=== PATIENT | female | born 1955 | race Caucasian/White ===

== ENCOUNTER 2025-02-17 11:13 | Emergency (ER) | payer MEDICARE, OTHER ==
[~2025-02-17] VITALS: Ht 165.1 cm; Wt 80.3 kg
--- NOTE | 2025-02-17 11:21 | ERN ---
ED Note History of Present Illness Stated Complaint: BACK PAIN Chief Complaint: Back Injury Time Seen by MD: 11:16 Dictation: PATIENT IS A 69-YEAR-OLD FEMALE THAT COMING IN TODAY FROM THE [facility] WITH SWELLING AND ECCHYMOSIS TO HER LOW BACK MIDLINE [place] AREA ONSET WAS TWO WEEKS PRIOR TO ARRIVAL. 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 SHE SHE IS ON NO BLOOD THINNERS NO LOC NO HEAD INJURY. SHE STATES SHE STARTED NOTICED SWELLING TO HER LOW BACK THEN AND WENT TO [facility] AND WAS SEEN BY A PA WHO GAVE HER LIDODERM PATCHES. NO IMAGING OR LABS DONE. SHE STATES THE SWELLING HAS CONTINUED TO GET WORSE AND SHE CAME IN TODAY AFTER BEING SENT TO THE URGENT CARE BY THE [facility] AND THEY TOLD HER TO GO TO THE ER. 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 Past Medical History History: Not Applicable RN Note Reviewed/Agreed w/PFSH: Yes Review of System Dictation CONSTITUTIONAL: NEGATIVE EXCEPT FOR HPI HEAD/FACE: NEGATIVE EXCEPT FOR HPI EENT: NEGATIVE EXCEPT FOR HPI RESPIRATORY: NEGATIVE EXCEPT FOR HPI GASTROINTESTINAL/ABDOMINAL: NEGATIVE EXCEPT FOR HPI GENITOURINARY: NEGATIVE EXCEPT FOR HPI MUSCULOSKELETAL: NEGATIVE EXCEPT FOR HPI LOW BACK PAIN WITH SWELLING INTEGUMENTARY: NEGATIVE EXCEPT FOR HPI NEUROLOGICAL/PSYCH: NEGATIVE EXCEPT FOR HPI HEMATOLOGIC/LYMPHATIC: NEGATIVE EXCEPT FOR HPI ALL SYSTEMS NEGATIVE, EXCEPT NOTED ABOVE. 13 POINT REVIEW OF SYSTEMS ASSESSED AND ALL NEGATIVE EXCEPT FOR ABOVE. Initial Vital Sign VS Vital Signs Date Time Temp Pulse Resp B/P (MAP) Pulse Ox O2 Delivery O2 Flow Rate FiO2 02/17/25 11:16 98.6 71 18 118/56 97 02/17/25 12:39 Room Air* 0 21 Physical Exam Dictation VITAL SIGNS REVIEWED GENERAL APPEARANCE: ALERT, ORIENTED X 3, MILD ACUTE DISTRESS, WELL DEVELOPED, NOURISHED. HEAD AND FACE: NON-TRAUMATIC. EYES: PERRL, PINK CONJUNCTIVAS, EYELID NO TRAUMA, ANTERIOR CHAMBER WITH ARCUS SENILIS. EARS: PINNAS INTACT AND NO SIGNS OF TRAUMA OR ERYTHEMA EAR CANALS CLEAR AND NO DISCHARGE TM NO ERYTHEMA NOSE: NO DISCHARGE, NO BLEEDING. OROPHARYNX: MOUTH NORMAL, TONGUE PINK, PHARYNX CLEAR,NO ERYTHEMA, TONSILS NO EXUDATES, NO ABSCESSES NOTED, MUCOUS MEMBRANE MOIST NECK: SUPPLE, NON-TENDER, NO THYROMEGALY, NO MASSES, NO JVD, NO BRUITS BREAST:DEFERRED CHEST:NO TENDERNESS, NO CREPITUS, NO PARADOXICAL MOVEMENT, NO RETRACTIONS LUNGS:CLEAR, WELL-VENTILATED, SYMMETRIC, NO RALES, NO WHEEZING, NO RHONCHI, NO STRIDOR, GOOD BREATH SOUNDS BILATERALLY HEART: REGULAR RATE, REGULAR RHYTHM, NO MURMUR, NO GALLOPS VASCULAR: NO PERIPHERAL EDEMA, ABDOMEN: SOFT, POSITIVE BOWEL SOUNDS, NONDISTENDED, NO GUARDING, NONTENDER, NO REBOUND, NO MASSES NO HEPATOMEGALY, NO SPLENOMEGALY, NO CORONEL'S SIGN, NO HERNIAS. RECTAL: DEFERRED GENITAL: DEFERRED NEUROLOGICAL: NORMAL SPEECH, MOTOR FUNCTION INTACT, SENSORY FUNCTION INTACT MUSCULOSKELETAL: NECK NONTENDER, FULL RANGE OF MOTION, DIFFUSE LUMBAR TENDERNESS WITH A ECCHYMOSIS NOTED. THERE WAS A SIGNIFICANT AREA OF SWELLING THAT IS SOFT NO FLUCTUANCE NONTENDER TO THE MIDLINE LUMBAR AREA. EXTREMITIES: NONTENDER, FULL RANGE OF MOTION SKIN: COLOR PINK, DRY, NO TURGOR, NO RASH, NO LACERATIONS, NO ABRASIONS, NO CONT USIONS. LYMPHATIC: DEFERRED Results (Laboratory/Radiology) Laboratory/Radiology Laboratory Tests Test 02/17/25 11:48 White Blood Count 5.6 K/uL (4.8-10.8) Red Blood Count 4.09 MIL/uL (4.00-5.50) Hemoglobin 12.2 g/dL (12.0-16.0) Hematocrit 37.7 % (36-48) Mean Corpuscular Volume 92.2 fL (79-99) Mean Corpuscular Hemoglobin 29.8 pg (27.0-33.0) Mean Corpuscular Hemoglobin Concent 32.4 g/dL (32.0-36.0) Red Cell Distribution Width 13.5 % (11.0-15.5) Platelet Count 294 K/uL (130-400) Mean Platelet Volume 10.2 fL (7.5-10.5) Immature Granulocyte % (Auto) 0.4 % (0-1) Neutrophils (%) (Auto) 56.0 % (40.0-77.0) Lymphocytes (%) (Auto) 30.3 % (21.0-51.0) Monocytes (%) (Auto) 10.8 % (3.0-13.0) Eosinophils (%) (Auto) 1.4 % (0.0-8.0) Basophils (%) (Auto) 1.1 % (0.0-5.0) Neutrophils # (Auto) 3.2 K/uL (1.8-7.7) Lymphocytes # (Auto) 1.7 K/uL (1.0-4.8) Monocytes # (Auto) 0.6 K/uL (0.1-1.0) Eosinophils # (Auto) 0.08 K/uL (0.00-0.70) Basophils # (Auto) 0.06 K/uL (0.00-0.20) Absolute Immature Granulocyte (auto 0.02 K/uL (0-1) Nucleated Red Blood Cells 0.0 % (0.0-0.19) Sodium Level 136 mmol/L (136-145) Potassium Level 4.2 mmol/L (3.5-5.1) Chloride Level 99 mmol/L (101-111) L Carbon Dioxide Level 30 mmol/L (21-32) Blood Urea Nitrogen 19 mg/dL (7-18) H Creatinine 0.6 mg/dL (0.5-1.0) Glomerular Filtration Rate Calc 97 mL/min (>90) Random Glucose 90 mg/dL (70-105) Total Calcium 8.8 mg/dL (8.5-10.1) 1205/LUMBAR FILM DEMONSTRATES DEGENERATIVE CHANGES ONLY ULTRASOUND DEMONSTRATES 8.4 X 2.5 X 4.5 HEMATOMA. Labs Reviewed?: Yes ED Course ED Course Orders Procedure Category Date Status Time Lumbar Spine 2-3vws RAD 02/17/25 Resulted 11:17 Us Soft Tissue Lower US 02/17/25 Resulted Back 11:17 Cbc With Differential LAB 02/17/25 Complete 11:17 Basic Metabolic Panel LAB 02/17/25 Complete 11:17 Vital Signs Date Time Temp Pulse Resp B/P (MAP) Pulse Ox O2 Delivery O2 Flow Rate FiO2 02/17/25 12:39 98.4 70 14 115/57 97 Room Air* 0 21 02/17/25 11:16 98.6 71 18 118/56 97 Medical Decision Making [facility] 1245/MEDICAL DECISION-MAKING BASED ON BASIC LABS, ULTRASOUND OF SWOLLEN AREA TO BACK AND X-RAY LABS UNREMARKABLE ULTRASOUND DEMONSTRATES SUBCUTANEOUS HEMATOMA LUMBAR X-RAY NEGATIVE FOR FRACTURE HEMATOMA WAS ASPIRATED AFTER CONSENT BY PATIENT HEMATOMAS NOW MARKEDLY REDUCED AND DECOMPRESSED PATIENT GIVEN WOUND CARE INSTRUCTIONS Procedure Procedure Dictation: 1235/PROCEDURE EXPLAINED TO PATIENT SHE AGREED TO PROCEED HEMATOMA TO LUMBAR BACK WAS PREPPED ASEPTICALLY WITH BETADINE SWABS 18 GAUGE NEEDLE TO A 50 ML SYRINGE WAS USED TO ASPIRATE HEMATOMA ASPIRATED APPROXIMATELY 40 ML OF SEROSANGUINEOUS DRAINAGE HEMATOMAS MARKEDLY REDUCED NO BLEEDING AFTER PROCEDURE AND PATIENT TOLERATED WELL WOUND CARE INSTRUCTIONS GIVEN TO PATIENT TO INCLUDE NO HOT TUBS NO SWIMMING UNTIL CLEARED BY HER DOCTOR DX & DISP Disposition: Discharge Departure Impression: Primary Impression: Traumatic hematoma of lower back Additional Impressions: Fall, Dehydration, Traumatic ecchymosis of lower back Condition: Stable Additional Instructions: FOLLOW-UP WITH PRIMARY CARE PROVIDER IN 1 TO 2 DAYS. TAKE MEDICATIONS DIRECTED HERE IN THE EMERGENCY ROOM. OKAY TO CONTINUE HOME MEDICATIONS UNLESS OTHERWISE DISCUSSED DURING YOUR VISIT IN THE EMERGENCY ROOM TODAY. RETURN TO YOUR NEAREST EMERGENCY ROOM IF SYMPTOMS WORSEN OR IF THERE IS NO IMPROVEMENT. CALL 911 IF YOU NEED IMMEDIATE ASSISTANCE. TAKE TYLENOL OR MOTRIN [id number] NEEDED AND IF NO CONTRAINDICATIONS ARE PRESENT. INCREASE ORAL HYDRATION. A WOUND CULTURE OR URINE CULTURE WAS ORDERED HERE IN THE EMERGENCY ROOM DEPARTMENT PLEASE FOLLOW-UP WITH PRIMARY CARE PROVIDER AND ADVISE THEM TO GET REPEAT PORTS FROM OUR FACILITY. IF YOU HAD ANY JUANA WRAP/SPLINTS THAT WERE APPLIED HERE, PLEASE DO NOT REMOVE THEM UNTIL YOU SEE YOUR PRIMARY CARE OR SPECIALTY. TRIPLE ANTIBIOTIC OINTMENT 3 TIMES A DAY FOR FIVE DAYS WITH BAND-AID TO PUNCTURE WOUND ON BACK. OKAY TO TAKE A SHOWER WASH WITH SOAP AND WATER AND REPLACE BAND-AID AFTER BATH. NO HOT TUBS, NO SWIMMING NO LYING IN BATH TUBS UNTIL CLEARED BY YOUR DOCTOR. Referrals: NONE (PCP) Time of Disposition: 12:47 I have reviewed the case, and I agree with, Diagnosis and Plan ADELE BOSS Feb 17, 2025 11:21
[2025-02-17 11:58] LABS: CREATININE 0.6 mg/dL (0.5-1.0); GLOMERULAR FILTR. RATE CALC 97.0 mL/min (>90); GLUCOSE,RANDOM 90.0 mg/dL (70-105); SODIUM SERUM 136.0 mmol/L (136-145); UREA NITROGEN, BLOOD 19.0 mg/dL (7-18)
[2025-02-17 12:00] LABS: IMMATURE GRANULOCYTE ABSOLUTE 0.02 K/uL (0-1); NUCLEATED RED BLOOD CELLS 0.0 % (0.0-0.19); PLATELET COUNT (AUTO) 294 K/uL (130-400); RED BLOOD CELL COUNT(AUTO) 4.09 MIL/uL (4.00-5.50); RED CELL DISTRIBUTION WIDTH 13.5 % (11.0-15.5); WHITE BLOOD COUNT (AUTO) 5.6 K/uL (4.8-10.8)
--- NOTE | 2025-02-17 12:26 | HMCIMG ---
EXAM: US examination, soft tissue, lower back CLINICAL HISTORY: RAISED AREA TO MIDLINE LUMBAR STATUS POST FALL TWO WEEKS AGO TECHNIQUE: Real-time ultrasound examination performed with image documentation. COMPARISON: None provided. FINDINGS: Fluid collection in the lower midback region of interest measuring 8.4 x 2.5 x 6.8 cm (75 cc) with no internal vascularity, in view of a history of fall and trauma to the region of interest, this is more likely a hematoma. IMPRESSION: 1. Large fluid collection in the lower midback, measuring 8.4 x 2.5 x 6.8 cm (75 cc), likely representing a hematoma given the history of recent fall. 2. Could be further evaluated with a CT with contrast or MRI of this area. /Carolyn
--- NOTE | 2025-02-17 12:31 | HMCIMG ---
EXAM: CR Lumbar Spine, 3 View. CLINICAL HISTORY: LUMBAR PAIN STATUS POST FALL TWO WEEKS AGO COMPARISON: None provided. FINDINGS: BONES: No acute fracture or aggressive appearing osseous lesion. ALIGNMENT: Alignment is within normal limits. No significant scoliosis. DISCS / DEGENERATIVE CHANGES: Spondylosis evident by anterior osteophytes and syndesmophytes as well as multilevel facet joint osteoarthritis. This is most pronounced at L3-L4 and L4-L5. There is mild to moderate multilevel degenerative disc disease. SOFT TISSUES: The soft tissues are unremarkable. IMPRESSION: No acute lumbar spine abnormality evident. If clinical concern persist recommend CT or MR evaluation. /Redkey
[2025-02-17 12:39] VITALS: BP 115/57; PULSE 70; RESP 14; TEMP 98.4; O2SAT 97
== END 2025-02-17 13:02 | disposition home or self-care (01) ==
LOC: EDH 11:13
DX: S30.0XXA Contusion of lower back and pelvis, initial encounter (principal); E86.0 Dehydration; W11.XXXA Fall on and from ladder, initial encounter; Y93.89 Activity, other specified; Y92.89 Other specified places as the place of occurrence of the external cause; Y99.0 Civilian activity done for income or pay
CPT/HCPCS: 10160; 36415; 72100; 76705; 80048; 85025; 99284